=== PATIENT | female | born 1985 | race Caucasian/White ===

== ENCOUNTER 2019-02-08 22:15 | Inpatient (IN) | payer MEDICAID, OTHER ==
[~2019-02-08] VITALS: Ht 165.1 cm; Wt 124.3 kg
[2019-02-08] MEDS ORDERED: RINGERS SOLUTION,LACTATED 1,000 ML IV ONE (22:25)
[2019-02-08] MEDS ORDERED: OXYTOCIN 30 UNITS/LACT RINGERS 500 ML IV ONE (22:25)
[2019-02-08] MEDS ORDERED: LIDOCAINE/PF 1% 30 ML VIAL INJ PRN (22:30)
[2019-02-08] MEDS ORDERED: METOCLOPRAMIDE HCL 5 MG/ML 2 ML VIAL IVP PRN (22:30)
[2019-02-08] MEDS ORDERED: DINOPROSTONE 10 MG VAGINAL SUPPOSITORY VG ONE (22:30)
[2019-02-08] MEDS ORDERED: CITRIC ACID/SODIUM CITRATE 30 ML SOLUTION UDCUP PO PRN (22:30)
[2019-02-08 22:53] LABS: BASOPHILS % (AUTO) 0.4 % (0.0-2.0); EOSINOPHILS % (AUTO) 1.2 % (1.0-6.0); HEMATOCRIT 32.8 % (36-46); HEMOGLOBIN 11.2 g/dL (12.0-16.0); LYMPHOCYTES # (AUTO) 1.7 K/uL (1.0-4.8); LYMPHOCYTES % (AUTO) 22.9 % (22.0-44.0); MEAN CORPUSCULAR HEMOGLOBIN 26.6 pg (26.0-34.0); MEAN CORPUSCULAR VOLUME 78 fL (80-100); MONOCYTES # (AUTO) 0.4 K/uL (0.1-1.0); MONOCYTES % (AUTO) 5.1 % (2.0-9.0); NEUTROPHILS # (AUTO) 5.1 K/uL (1.8-7.7); NEUTROPHILS % (AUTO) 70.4 % (40.0-70.0); PLATELET COUNT (AUTO) 232 K/uL (150-450); RED CELL DISTRIBUTION WIDTH 13.3 % (11.5-14.5)
[2019-02-08 22:53] LABS: GLUCOMETER DEV NAME(LOC) 4S.; GLUCOSE,POINT OF CARE 111 MG/DL (70-110)
[2019-02-09 00:34] VITALS: BP 101/64
[2019-02-09] MEDS ORDERED: INSNPH SQ ×2 (00:37)
[2019-02-09] MEDS ORDERED: PNV11TAB PO (00:38)
[2019-02-09] MEDS ORDERED: MV C PO (00:39)
[2019-02-09] MEDS: RINGERS SOLUTION,LACTATED 1,000 ML IV SCH ×2 (07:07→14:33)
[2019-02-09] MEDS ORDERED: MISOPROSTOL 25 MCG TABLET VG ONE (09:30)
[2019-02-09] MEDS ORDERED: -PHARMACY NOTE- MISC ONE (10:30)
[2019-02-09] MEDS ORDERED: MISOPROSTOL 25 MCG TABLET PO SCH (14:00)
[2019-02-09] MEDS: FentaNYL CITRATE-PF 100 MCG/2 ML VIAL IVP PRN ×3 (15:17→16:55)
[2019-02-09] MEDS ORDERED: ROPIVACAINE HCL/PF 0.2% 100 ML ED ONE (18:13)
[2019-02-09] MEDS ORDERED: OXYTOCIN 30 UNITS/LACT RINGERS 500 ML IV PRN (18:30)
[2019-02-09] MEDS ORDERED: ONDANSETRON HCL 4 MG/2 ML VIAL IVP PRN (18:45)
[2019-02-09] MEDS ORDERED: MEPERIDINE-PF 25 MG/ML VIAL IVP PRN (18:45)
[2019-02-09] MEDS ORDERED: HYDROmorphone 2 MG/ML SYRINGE IVP PRN (18:45)
[2019-02-09] MEDS ORDERED: ROPIVACAINE HCL/PF 0.2% 100 ML ED PRN (18:45)
[2019-02-09] MEDS ORDERED: DiphenhydrAMINE HCL 50 MG/ML VIAL IVP PRN (18:45)
[2019-02-09] MEDS ORDERED: FentaNYL CITRATE-PF 100 MCG/2 ML VIAL IVP PRN (18:45)
[2019-02-09] MEDS ORDERED: OXYGEN THERAPY IH SCH (20:00)
[2019-02-10] MEDS ORDERED: GLYCERIN/WITCH HAZEL LEAF 40 PADS JAR TP PRN (00:30)
[2019-02-10] MEDS ORDERED: OXYTOCIN 30 UNITS/LACT RINGERS 500 ML IV ONE (00:30)
[2019-02-10] MEDS ORDERED: OxyCODONE HCL/ACETAMINOPHEN 5-325 MG TABLET PO PRN (00:30)
[2019-02-10] MEDS ORDERED: LANOLIN 7 GM OINTMENT TP PRN (00:30)
[2019-02-10] MEDS ORDERED: BENZOCAINE 20%/MENTHOL 56 GM SPRAY CANISTER TP PRN (00:30)
[2019-02-10] MEDS ORDERED: LIDOCAINE/PF 1% 30 ML VIAL INJ PRN (00:30)
[2019-02-10] MEDS: MAGNESIUM HYDROXIDE SUSPENSION 30 ML UDCUP PO PRN ×2 (08:09→21:36)
[2019-02-10] MEDS: IBUPROFEN 800 MG TABLET PO PRN ×3 (08:09→21:05)
[2019-02-10] MEDS: OxyCODONE HCL/ACETAMINOPHEN 5-325 MG TABLET PO PRN (08:10)
[2019-02-10] MEDS ORDERED: MEASLES/MUMPS/RUBELLA VACCINE, LIVE 0.5 ML/VIAL SQ ONE (10:45)
[2019-02-11] MEDS: OxyCODONE HCL/ACETAMINOPHEN 5-325 MG TABLET PO PRN (03:59)
[2019-02-11] MEDS: IBUPROFEN 800 MG TABLET PO PRN (03:59)
[2019-02-11 06:49] LABS: BASOPHILS % (AUTO) 0.2 % (0.0-2.0); EOSINOPHILS % (AUTO) 1.4 % (1.0-6.0); HEMATOCRIT 23.8 % (36-46); HEMOGLOBIN 8.2 g/dL (12.0-16.0); LYMPHOCYTES # (AUTO) 2.1 K/uL (1.0-4.8); MEAN CORPUSCULAR HEMOGLOBIN 27.2 pg (26.0-34.0); MEAN CORPUSCULAR HGB CONC 34.6 G/dL (31.0-37.0); MEAN CORPUSCULAR VOLUME 78 fL (80-100); MONOCYTES # (AUTO) 0.5 K/uL (0.1-1.0); MONOCYTES % (AUTO) 6.6 % (2.0-9.0); NEUTROPHILS # (AUTO) 4.6 K/uL (1.8-7.7); NEUTROPHILS % (AUTO) 62.8 % (40.0-70.0); PLATELET COUNT (AUTO)-OB 180 K/uL (150-450); RED BLOOD CELL COUNT(AUTO) 3.04 MIL/uL (4.00-5.20); RED CELL DISTRIBUTION WIDTH 13.2 % (11.5-14.5)
== END 2019-02-11 10:45 | disposition home or self-care (01) | DRG 560 ==
LOC: OBSVTOIN 22:15 → 4S 22:15
PROVIDERS: ADMIT Obstetrics & Gynecology; ATTEND Obstetrics & Gynecology
PROC: 10E0XZZ Delivery of Products of Conception, External Approach (ICD-10-PCS; principal; 2019-02-10)
PROC: 0HQ9XZZ Repair Perineum Skin, External Approach (ICD-10-PCS; 2019-02-10)
PROC: 3E0R3BZ Introduction of Anesthetic Agent into Spinal Canal, Percutaneous Approach (ICD-10-PCS; 2019-02-10)
PROC: 00HU33Z Insertion of Infusion Device into Spinal Canal, Percutaneous Approach (ICD-10-PCS; 2019-02-10)
DX: O70.0 First degree perineal laceration during delivery (principal); Z37.0 Single live birth; Z3A.39 39 weeks gestation of pregnancy
CPT/HCPCS: 86850; 86900; 86901; 90707; 99219; J2590; J2795; J3010; J7120